=== PATIENT | male | born 2000 | race Caucasian/White ===

== ENCOUNTER 2021-05-05 10:19 | Emergency (ER) | payer BC ==
[~2021-05-05] VITALS: Ht 177.8 cm; Wt 140.6 kg
[2021-05-05] MEDS ORDERED: ATIVAN1 M1 PO (11:11)
[2021-05-05] MEDS ORDERED: ZOFRAN ODT4 MG PO (11:17)
[2021-05-05] MEDS ORDERED: VENTOLIN HFA 1818 GM INH (11:17)
[2021-05-05 11:22] VITALS: BP 136/88
== END 2021-05-05 11:24 | disposition home or self-care (01) ==
LOC: M.ERS 10:19
DX: U07.1 COVID-19 (principal)

== ENCOUNTER 2021-05-09 11:52 | Inpatient (IN) | payer BC ==
[~2021-05-09] VITALS: Ht 175.3 cm; Wt 136.1 kg
[~2021-05-09 11:52] MED LIST: ATIVAN1 M1 PO; VENTOLIN HFA 1818 GM INH; ZOFRAN ODT4 MG PO
[2021-05-09 12:03] VITALS: BP 111/57
[2021-05-09 12:46] LABS: ABSOLUTE LYMPHOCYTES 0.5 thou/uL (0.8-5.3); ABSOLUTE MONOCYTES 0.2 thou/uL (0.0-1.2); ABSOLUTE NEUTROPHILS 2.4 thou/uL (1.6-8.1); BASOPHILS 0.5 %; HEMATOCRIT 44.4 % (42.0-52.0); HEMOGLOBIN 15.9 gm/dL (14.0-18.0); LYMPHOCYTES 16.5 %; MCH 29.9 pg (26.0-34.0); MCHC 35.8 g/dL (28.0-37.0); MCV 83.6 fL (80.0-100.0); MONOCYTES 5.6 %; NUCLEATED RBCS 0 /100WBC; PLATELET COUNT* 145 thou/uL (150-400); POLYS 77.4 %; RBC 5.31 mil/uL (4.50-6.00)
[2021-05-09 12:58] LABS: CALCIUM 8.1 mg/dL (8.5-10.1); CREATININE 1.2 mg/dL (0.6-1.3); POTASSIUM 3.5 mmol/L (3.5-5.1)
[2021-05-09 13:08] LABS: ALBUMIN 3.4 g/dL (3.4-5.0); MAGNESIUM 2.1 mg/dL (1.8-2.4); TOTAL BILIRUBIN 0.4 mg/dL (<0.1-1.0); TOTAL PROTEIN 6.7 g/dL (6.4-8.2)
[2021-05-09 14:55] VITALS: BP 121/76
[2021-05-09 15:30] VITALS: BP 117/71
[2021-05-09 20:00] VITALS: BP 131/81
[2021-05-10 00:18] VITALS: BP 124/80
[2021-05-10 04:00] VITALS: BP 114/68
[2021-05-10 08:01] VITALS: BP 110/74
[2021-05-10 08:41] LABS: CALCIUM 8.4 mg/dL (8.5-10.1); CREATININE 1.1 mg/dL (0.6-1.3); POTASSIUM 3.4 mmol/L (3.5-5.1)
--- NOTE | 2021-05-10 10:30 | EKG ---
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: : 2000 Requested By: Geo Childress Order Number: [id number] MD: Avery Layne Measurements Intervals [place] Rate: 128 P: 23 CA: 118 QRS: 113 QRSD: 149 T: -1 QT: 307 QTc: 448 Interpretive Statements Sinus tachycardia Probable left atrial enlargement RBBB and LPFB *Brugada patern EKG* No previous ECG available for comparison Electronically Signed On 05-09-2021 12:54:15 CDT by Avery Layne Electronically Signed On 05-10-2021 10:30:45 CDT by Avery Layne [email or web address] <ELECTRONICALLY SIGNED> By: Avery Layne MD, FACC 05/10/21 1030 1215 1215 Avery Layne MD, FACC /EPI
[2021-05-10 11:51] VITALS: BP 115/69
[2021-05-10 17:02] VITALS: BP 118/73
[2021-05-10 21:30] VITALS: BP 112/55
[2021-05-11 04:00] VITALS: BP 112/69
[2021-05-11 08:46] VITALS: BP 115/57
[2021-05-11 11:56] LABS: ABSOLUTE LYMPHOCYTES 0.4 thou/uL (0.8-5.3); ABSOLUTE MONOCYTES 0.2 thou/uL (0.0-1.2); ABSOLUTE NEUTROPHILS 2.4 thou/uL (1.6-8.1); BASOPHILS 0.6 %; HEMATOCRIT 42.7 % (42.0-52.0); LYMPHOCYTES 13.8 %; MCHC 35.2 g/dL (28.0-37.0); MCV 85.2 fL (80.0-100.0); MONOCYTES 6.8 %; MPV 7.4 fl. (7.2-11.1); NUCLEATED RBCS 0 /100WBC; PLATELET COUNT* 182 thou/uL (150-400); POLYS 78.8 %; RBC 5.01 mil/uL (4.50-6.00); RDW-CV 13.2 % (10.5-14.5); WBC 3.1 thou/uL (4.0-11.0)
[2021-05-11 12:09] LABS: APTT 34.2 Seconds (25.0-31.3); INR 1.1; PROTIME 11.2 Seconds (9.20-11.50)
[2021-05-11 12:11] LABS: CALCIUM 8.1 mg/dL (8.5-10.1); CREATININE 0.9 mg/dL (0.6-1.3); MAGNESIUM 2.4 mg/dL (1.8-2.4); POTASSIUM 3.8 mmol/L (3.5-5.1); TOTAL BILIRUBIN 0.5 mg/dL (<0.1-1.0); TOTAL PROTEIN 6.3 g/dL (6.4-8.2)
--- NOTE | 2021-05-11 15:44 | CON ---
[address] [address] CONSULTATION Name: PHILLIP VILLAFANA Room: [address] IN M.R.#: [id number] Admission: 05/09/21 Attend Phys: Cristo oCoper Discharge: Date of : 01 Report #: [id number] THIS REPORT FOR: cc: Rod Seo Vincent R. DO Pervez, Adeel MD ~ DATE OF CONSULTATION: 05/11/2021 REQUESTING PHYSICIAN: Anjum Freire DO HISTORY OF PRESENT ILLNESS: This is a 20-year-old gentleman who has a history of morbid obesity, his body mass index is 46. He also reports that he had asthma as a child until he was recently seen in the Emergency Room in this hospital. He was not on any bronchodilator or other medications for asthma. I do suspect that he has previously undiagnosed obstructive sleep apnea. He is unvaccinated for COVID-19. At this time, the patient initially was seen in the Emergency Room on 05/05/2021 and was diagnosed with COVID-19. He was subsequently discharged; however, came back to the Emergency Room on the with worsening respiratory complaints. Upon his second presentation, he was saturating only 86% on room air and therefore, he was admitted. At this time, he says that he continues to remain short of breath, but he reports that his shortness of breath in fact is better than when he was initially admitted. He has had a cough, small amounts of white sputum. He initially also had nausea and vomiting, which have now subsided. He had some chest pain initially associated with coughing, which has now subsided. He reports that he has had diarrhea, headaches, fevers and chills and vague discomfort in his lower extremities as well. Overall, however, he says he is feeling better than when he came in, but despite this, he in fact is now on 10 liters of oxygen, compared with 6 liters with which he was admitted. He does, however, appear to be fluid overloaded at this time. He answers to the negative for 12 questions for review of systems, except as mentioned above. PAST MEDICAL HISTORY: Morbid obesity, body mass index 46, asthma as a child, has not taken medications for asthma during his adult life. SOCIAL HISTORY: No known history of smoking, heavy alcohol use or illegal drug use. CURRENT MEDICATIONS: List in [place] reviewed. HOME MEDICATIONS: He was started on a p.r.n. albuterol inhaler, p.r.n. Zofran and Ativan recently in the Emergency Room. No other home medications. ALLERGIES: [place] [address] CONSULTATION Name: PHILLIP VILLAFANA Room: [address] IN [facility]#: [id number] Admission: 05/09/21 Attend Phys: Cristo Cooper Discharge: Date of : 01 Report #: [id number] FAMILY HISTORY: Diabetes. PHYSICAL EXAMINATION: GENERAL: He is alert, awake and oriented, does not appear to be in any distress at this time. VITAL SIGNS: Pulse of 88 and a blood pressure of 115/57, saturating 93%. He is on 10 liters nasal cannula. His respiratory rate is 18. He is afebrile with a temperature of 36.9. Had elevation in temperature to 37.9 last night. HEENT: Head is normocephalic and atraumatic. NECK: Does not show raised JVP, asymmetry, mass or lymph nodes. CHEST: Symmetrical expansion on inspection and palpation. On auscultation, chest is clear. HEART: Regular. There is no murmur. ABDOMEN: Soft and nontender. EXTREMITIES: Lower extremities show 1+ edema, no calf tenderness. SKIN: Dry and intact. NEUROLOGIC: Moves all extremities bilaterally equally and spontaneously with no focal deficit identified. LABORATORY DATA: The patient's chest x-rays, which I repeated today, somewhat worse, likely either mild fluid overload or change in technique, worsening infiltrates can also lead to this picture. The patient's lab work in [facility] [place] reviewed. ASSESSMENT AND PLAN: 1. Acute hypoxemic respiratory failure secondary to COVID-19. Continue out of bed to chair. Continue to titrate oxygen. Continue to avoid lying supine, sleep prone if possible. He likely has underlying obstructive sleep apnea; therefore, if his condition deteriorates, then I will have a low threshold of placing him on BiPAP. 2. COVID-19. I agree with dexamethasone, remdesivir as well as Actemra as ordered by Dr. Freire. His LFTs are elevated. Benefits of remdesivir still appear to outweigh risks. I would therefore continue, but continue to follow LFTs. For now, I decided to hold off on convalescent plasma; however, if he fails to improve, we will consider it. 3. Pulmonary infiltrates. He is on ceftriaxone. I agree with the same. We will obtain a sputum culture as well as a nasal swab for MRSA. 4. Pending COVID-19 PCR. Note that his antigen is negative in this admission, which was positive on 05/05. I would treat him as having COVID-19, regardless of the PCR results. 5. Morbid obesity/suspected obstructive sleep apnea. Discussion as above. 6. Possible component of bronchospasm. We will go ahead and give him Brovana as well as [place] [address] CONSULTATION Name: PHILLIP VILLAFANA Room: [address] IN .R.#: [id number] Admission: 05/09/21 Attend Phys: Cristo Cooper Discharge: Date of : 01 Report #: [id number] 7. Mild fluid overload. We will diurese him with Aldactone and Lasix today. Blood pressure has been on the lower side. Therefore, I would start him on scheduled midodrine so that he is able to better tolerate diuresis. 8. Mild elevation in D-dimer/evaluation for thromboembolic phenomena. He currently is on intermediate dose Lovenox. I agree with the same. There is minimal elevation in D-dimer. For now, I decided to hold off on a CTA chest, but I ordered venous Dopplers. 9. Gastrointestinal prophylaxis, Protonix. 10. Clostridium difficile prophylaxis, Lactinex. Thanks for this consultation. <ELECTRONICALLY SIGNED> By: Jaswant Allen MD 05/11/21 1544 1203 1242Ajazmyne Allen MD /nt
[2021-05-11 16:17] VITALS: BP 115/72
[2021-05-11 20:45] VITALS: BP 120/74
[2021-05-11 23:32] VITALS: BP 121/73
[2021-05-12 03:26] VITALS: BP 106/61
[2021-05-12 04:56] LABS: ALBUMIN 3.1 g/dL (3.4-5.0); CALCIUM 8.2 mg/dL (8.5-10.1); MAGNESIUM 2.7 mg/dL (1.8-2.4); TOTAL BILIRUBIN 0.6 mg/dL (<0.1-1.0); TOTAL PROTEIN 6.3 g/dL (6.4-8.2)
[2021-05-12 08:52] VITALS: BP 119/74
[2021-05-12 13:27] VITALS: BP 114/71
--- NOTE | 2021-05-12 14:34 | 2DMMODE ---
[place] [address] 2 D/M-MODE ECHOCARDIOGRAM Name: VILLAFANAPHILLIP E Room: [address] IN [facility]#: [id number] Admission: 05/09/21 Attend Phys: Anjum Freire Discharge: Date of : 01 Date of Service: 05/12/21 1434 Report #: [id number] THIS REPORT FOR: cc: Rod Seo,Rod Galan,Avery Pickering MD [facility] ~ APPROVED REPORT Study performed: 05/12/2021 10:17:42 EXAM: Comprehensive 2D, Doppler, and color-flow Echocardiogram Patient Location: In-Patient Room #: [facility] Status: routine BSA: 2.49 HR: 86 bpm BP: 119/74 mmHg Rhythm: NSR Other Information Study Quality: Good Indications Dyspnea 2D Dimensions IVSd: 11.54 (7-11mm) LVOT Diam: 21.19 (18-24mm) LVDd: 38.52 mm PWd: 9.81 (7-11mm) Ascending Ao: 27.21 (22-36mm) LVDs: 26.51 (25-40mm) Aortic Root: 30.53 mm Volumes Left Atrial Volume (Systole) LA ESV Index: 17.40 mL/m2 Aortic Valve AoV Peak Zander.: 1.38 m/s AO Peak Gr.: 7.56 mmHg LVOT Max P.37 mmHg AO Mean Gr.: 4.23 mmHg LVOT Mean P.74 mmHg LVOT Max V: 1.16 m/s AO V2 VTI: 24.09 cm LVOT Mean V: 0.76 m/s JOE (VTI): 3.21 cm2 LVOT V1 VTI: 21.89 [place] [address] 2 D/M-MODE ECHOCARDIOGRAM Name: PHILLIP VILLAFANA Room: [address]#: [id number] Admission: 05/09/21 Attend Phys: Anjum Freire Discharge: Date of : 01 Date of Service: 05/12/21 1434 Report #: [id number] Mitral Valve E/A Ratio: 1.37 MV Decel. Time: 244.49 ms MV E Max Zander.: 0.78 m/s MV PHT: 70.90 ms MVA (PHT): 3.10 cm2 TDI E/Lateral E': 4.59 E/Medial E': 5.20 Medial E' Zander.: 0.15 m/s Lateral E' Zander.: 0.17 m/s Pulmonary Valve PV Peak Zander.: 1.19 m/s PV Peak Gr.: 5.68 mmHg Left Ventricle The left ventricle is normal size. There is normal LV segmental wall motion. There is normal left ventricular wall thickness. Left ventricular systolic function is normal. LVEF is 55-60%. The left ventricular diastolic function is normal. Right Ventricle The right ventricle is normal size. The right ventricular systolic function is normal. Atria The left atrium size is normal. The right atrium size is normal. Aortic Valve The aortic valve is normal in structure. No aortic regurgitation is present. There is no aortic valvular stenosis. Mitral Valve The mitral valve is normal in structure. There is no mitral valve regurgitation noted. No evidence of mitral valve stenosis. Tricuspid Valve The tricuspid valve is normal in structure. Unable to assess PA pressure. Trace tricuspid regurgitation. Pulmonic Valve The pulmonary valve is normal in structure. Mild pulmonic regurgitation. [place] [address] 2 D/M-MODE ECHOCARDIOGRAM Name: VILLAFANAPHILLIP SERRANO Saumya Room: [address] IN [facility]#: [id number] Admission: 05/09/21 Attend Phys: Anjum Freire Discharge: Date of : 01 Date of Service: 05/12/21 1434 Report #: [id number] The aortic root is normal in size. IVC is not well visualized. Pericardium There is no pericardial effusion. <Conclusion> The left ventricle is normal size. There is normal left ventricular wall thickness. Left ventricular systolic function is normal. LVEF is 55-60%. The left ventricular diastolic function is normal. There is normal LV segmental wall motion. <ELECTRONICALLY SIGNED> By: Avery Layne MD, FACC 05/12/21 1434 1434 1434 Avery Layne MD, FACC /INF
--- NOTE | 2021-05-12 16:51 | CON ---
[address] [address] CONSULTATION Name: PHILLIP VILLAFANA Room: [address] IN M.R.#: [id number] Admission: 05/09/21 Attend Phys: Cristo Cooper Discharge: Date of : 01 Report #: [id number] THIS REPORT FOR: cc: Rod Seo,Avery Wayne MD [facility] ~ cc: Rod Seo DO DATE OF CONSULTATION: 05/12/2021 CARDIOLOGY CONSULTATION INDICATION: Abnormal EKG. HISTORY OF PRESENT ILLNESS: The patient is a very pleasant 20-year-old gentleman who was admitted to the hospital on 05/09/2021 with progressive symptoms from COVID-19 infection. He had increasing shortness of breath, hypoxia and diarrhea. The patient was admitted and placed on supplemental oxygen. He is receiving treatment at this time. Initial EKG showed sinus rhythm with what appears to be a Brugada pattern. He denies any history of syncope or cardiac arrest. An echocardiogram has been ordered and is pending. There was no family history of sudden cardiac arrest. He is without cardiac complaint. His shortness of breath and diarrhea have been improving during hospitalization. PAST MEDICAL HISTORY: 1. COVID-19 infection. 2. Mild anxiety. ALLERGIES: None known. HOME MEDICATIONS: None. SOCIAL HISTORY: The patient does not smoke. He does not drink alcohol. PHYSICAL EXAMINATION: VITAL SIGNS: Stable. Pulse 82 and regular, blood pressure is 120/62. O2 sat on supplemental oxygen 96%. GENERAL: He is a pleasant male who is in no distress. Mood and affect appropriate. HEENT: Extraocular muscles intact. Mucous membranes are moist. NECK: Shows no jugular venous distention. There are no carotid bruits. CHEST: Reveals clear lung leger. I do not appreciate wheezes or rales. CARDIAC: Reveals a regular rhythm without gallop or murmur. ABDOMEN: Reveals normal bowel sounds. Abdomen is soft, [place] [address] CONSULTATION Name: VILLAFANAPHILLIP SERRANO Saumya Room: [address] IN [facility]#: [id number] Admission: 05/09/21 Attend Phys: Cristo Cooper Discharge: Date of : 01 Report #: [id number] EXTREMITIES: Shows no edema. Peripheral pulses 2+ and palpable. SKIN: Dry. DIAGNOSTIC DATA: A 12-lead EKG shows a sinus rhythm with Brugada pattern. Echocardiogram is pending. LABORATORY DATA: Reviewed. High sensitivity troponin is 7. IMPRESSION AND RECOMMENDATIONS: 1. COVID-19 pneumonia. The patient is improving with supplemental oxygen and treatment. 2. Brugada pattern on EKG. Echocardiogram ordered and pending. The patient will need outpatient followup and surveillance. We will discuss with Electrophysiology. <ELECTRONICALLY SIGNED> By: Avery Layne MD, HUDSON 05/12/21 6811 0928 1029[facility] Layne MD, HUDSON /nt
[2021-05-12 20:05] VITALS: BP 127/78
[2021-05-12 23:47] VITALS: BP 114/78
[2021-05-13 04:00] VITALS: BP 120/64
[2021-05-13 04:42] LABS: ALBUMIN 3.2 g/dL (3.4-5.0); CALCIUM 8.2 mg/dL (8.5-10.1); CREATININE 0.8 mg/dL (0.6-1.3); MAGNESIUM 2.7 mg/dL (1.8-2.4); TOTAL BILIRUBIN 0.6 mg/dL (<0.1-1.0); TOTAL PROTEIN 6.2 g/dL (6.4-8.2)
[2021-05-13 08:44] VITALS: BP 137/73
[2021-05-13 12:00] VITALS: BP 133/73
[2021-05-13 16:00] VITALS: BP 118/75
[2021-05-13 22:05] VITALS: BP 110/61
[2021-05-14 00:35] VITALS: BP 110/64
[2021-05-14 03:09] VITALS: BP 107/59
[2021-05-14 04:14] LABS: HEMATOCRIT 42.9 % (42.0-52.0); MCH 29.9 pg (26.0-34.0); MCHC 35.1 g/dL (28.0-37.0); MCV 85.3 fL (80.0-100.0); MPV 7.8 fl. (7.2-11.1); NUCLEATED RBCS 0 /100WBC; PLATELET COUNT* 222 thou/uL (150-400); RBC 5.03 mil/uL (4.50-6.00); RDW-CV 13.2 % (10.5-14.5); WBC 4.5 thou/uL (4.0-11.0)
[2021-05-14 04:44] LABS: ALBUMIN 3.4 g/dL (3.4-5.0); CALCIUM 7.9 mg/dL (8.5-10.1); CREATININE 0.9 mg/dL (0.6-1.3); POTASSIUM 3.7 mmol/L (3.5-5.1); TOTAL BILIRUBIN 0.7 mg/dL (<0.1-1.0); TOTAL PROTEIN 5.7 g/dL (6.4-8.2)
[2021-05-14 05:41] LABS: ABSOLUTE LYMPHOCYTES 1.8 thou/uL (0.8-5.3); ABSOLUTE MONOCYTES 0.5 thou/uL (0.0-1.2); ABSOLUTE NEUTROPHILS 2.2 thou/uL (1.6-8.1); ATYPICAL LYMPHS 1 %
[2021-05-14 05:42] LABS: PLATELET ESTIMATE ADEQUATE
[2021-05-14 05:43] LABS: ANISOCYTOSIS 1+; POIKILOCYTOSIS 1+
[2021-05-14 09:10] VITALS: BP 107/69
[2021-05-14] MEDS ORDERED: TESSALON PERLE100 MG PO (10:37)
[2021-05-14] MEDS ORDERED: LEVOFLOXACIN500 MG PO (10:39)
[2021-05-14] MEDS ORDERED: PREDNISONE 10 M10 MG PO (10:39)
[2021-05-14 11:46] VITALS: BP 107/69
--- NOTE | 2021-05-14 12:42 | EKG ---
[place] [address] ELECTROCARDIOGRAM REPORT Name: PHILLIP VILLAFANA Room: [address] ADM IN M.R.#: [id number] Admission: 05/09/21 Attend Phys: Anjum Freire Discharge: Date of : 01 Date of Service: 05/14/21713 Report #: [id number] THIS REPORT FOR: //name// 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 : 2000 Requested By: Avery Layne Order Number: [id number] Reading MD: Beto Awad Measurements Intervals [place] Rate: 89 P: 33 SD: 164 QRS: 52 QRSD: 110 T: 59 QT: 383 QTc: 467 Interpretive Statements Sinus rhythm Compared to ECG 05/09/2021 12:15:10 Sinus tachycardia no longer present Left posterior fascicular block no longer present Right bundle-branch block no longer present Electronically Signed On 05-14-2021 12:42:44 CDT by Beto Awad [email or web address] <ELECTRONICALLY SIGNED> By: Beto Awad MD, FACC 05/14/21 1242 3 3 Beto Awad MD, FACC /EPI
== END 2021-05-14 13:30 | disposition home or self-care (01) | DRG 177 ==
LOC: M.ERS 11:52 → M.ORTHSURG 12:50 → M.TBA-ER 12:50 → M.ORTHSURG 15:57
PROVIDERS: Family Medicine; Internal Medicine Critical Care Medicine; ADMIT Internal Medicine; ATTEND Internal Medicine
PROC: XW033E5 Introduction of Remdesivir Anti-infective into Peripheral Vein, Percutaneous Approach, New Technology Group 5 (ICD-10-PCS; principal; 2021-05-09)
DX: U07.1 COVID-19 (principal); J96.01 Acute respiratory failure with hypoxia; J12.82 Pneumonia due to coronavirus disease 2019; Z68.41 Body mass index [BMI] 40.0-44.9, adult; E66.01 Morbid (severe) obesity due to excess calories; F41.9 Anxiety disorder, unspecified; K52.9 Noninfective gastroenteritis and colitis, unspecified; E87.70 Fluid overload, unspecified; I49.8 Other specified cardiac arrhythmias

== ENCOUNTER → 2021-06-05 | Outpatient (CLI) | payer BC ==
[~2021-06-05] MED LIST changes: +LEVOFLOXACIN500 MG PO; +PREDNISONE 10 M10 MG PO; +TESSALON PERLE100 MG PO
== END ==
LOC: M.ULTRA 08:00
PROVIDERS: ATTEND Family Medicine
DX: K76.0 Fatty (change of) liver, not elsewhere classified (principal); K80.20 Calculus of gallbladder without cholecystitis without obstruction; R74.8 Abnormal levels of other serum enzymes

== ENCOUNTER 2021-06-07 12:48 | Emergency (ER) | payer BC ==
[~2021-06-07] VITALS: Ht 175.3 cm; Wt 133.8 kg
[2021-06-07 13:40] VITALS: BP 134/84
--- NOTE | 2021-06-08 09:31 | EKG ---
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 06/08/21 0931 1255 1255 Beto Awad MD, [facility] /EPI
== END 2021-06-07 13:42 | disposition home or self-care (01) ==
LOC: M.ERS 12:48
DX: R07.89 Other chest pain (principal)